=== PATIENT | female | born 1985 | race African-American/Black ===

== ENCOUNTER 2021-11-16 04:03 | Emergency (ER) | payer MEDICARE, SELFPAY ==
--- NOTE | ~2021-11-16 | XR_ITS ---
EXAMINATION: XR chest 1V portable DATE: 11/16/2021 04:39 INDICATION: Cough. Dizziness. TECHNIQUE: A single frontal view of the chest was obtained. COMPARISON: None. FINDINGS: The chest demonstrates clear lungs without pneumonia, pleural effusion, or pneumothorax. Th e heart size is normal. IMPRESSION: 1. No acute cardiopulmonary disease. Reviewed, dictated and finalized at location A. 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
[2021-11-16 04:01] VITALS: BP 123/81; PULSE 87; RESP 18; TEMP 36.8; O2SAT 100
--- NOTE | 2021-11-16 04:34 | ED.GENADULT ---
HPI - General Adult General Chief complaint: Unspecified Stated complaint: multiple c/o Time Seen by Provider: 11/16/21 04:08 History of Present Illness HPI narrative: Patient is a 36-year-old female presents the emergency department with chief complaint of dizziness. Patient reported she had multiple complaints including generalized body aches had some nausea reports that she has a sore throat with this as well. Patient reports she has aching in her legs reports that she has a generalized malaise feeling over her body for symptoms or not improved by anything and reports has not been vaccinated for Covid and reports has not previously had Covid. Related Data Home Medications Medication Instructions Recorded Confirmed No Home Medications 11/16/21 11/16/21 Allergies Allergy/AdvReac Type Severity Reaction Status Date / Time No Known Allergies Allergy Verified 11/16/21 04:08 Review of Systems Review of Systems: A 10 system review of systems was completed on the patient and is negative except for what is stated in the HPI. Nursing and ancillary documentation was reviewed. Exam Narrative: GENERAL: Well-appearing, well-nourished, and in no acute distress. HEAD: Normocephalic, atraumatic. EYES: PERRLA and EOMI. ENT: Nares clear, no rhinorrhea or epistaxis. Mucous membranes moist. NECK: Supple. CHEST: Clear to auscultation. No respiratory distress. HEART: Regular rate and rhythm. No murmur heard. Normal peripheral pulses. ABDOMEN: Soft, nontender, nondistended, normal active bowel sounds. EXTREMITIES: Normal range of motion. No edema. SKIN: Warm, dry, no rash. NEURO: No focal deficits. Alert and oriented x3. PSYCH: Normal mood and affect. Course Vital Signs Vital signs: Vital Signs Temperature 36.8 C 11/16/21 04:01 Pulse Rate 87 11/16/21 04:01 Respiratory Rate 18 11/16/21 04:01 Blood Pressure 123/81 11/16/21 04:01 Pulse Oximetry 100 11/16/21 04:01 Temperature 36.8 C 11/16/21 04:01 Pulse Rate 87 11/16/21 04:01 Respiratory Rate 18 11/16/21 04:01 Blood Pressure 123/81 11/16/21 04:01 Pulse Oximetry 100 11/16/21 04:01 Medical Decision Making Vital Signs Vital Signs: Vital Signs Temperature 36.8 C 11/16/21 04:01 Pulse Rate 87 11/16/21 04:01 Respiratory Rate 18 11/16/21 04:01 Blood Pressure 123/81 11/16/21 04:01 Pulse Oximetry 100 11/16/21 04:01 Temperature 36.8 C 11/16/21 04:01 Pulse Rate 87 11/16/21 04:01 Respiratory Rate 18 11/16/21 04:01 Blood Pressure 123/81 11/16/21 04:01 Pulse Oximetry 100 11/16/21 04:01 Lab Data Result diagrams: 11/16/21 04:32 11/16/21 04:32 Labs: Lab Results 11/16/21 11/16/21 11/16/21 Range/Units 04:32 04:32 04:32 WBC 9.3 (4.5-10.0) K/mm3 RBC 3.94 L (4.2-5.4) M/mm3 Hgb 10.9 L (12.0-15.0) g/dL Hct 34.8 L (37.0-47.0) % MCV 88.3 (80-100) fl MCH 27.7 (26-34) pg MCHC 31.3 L (32-36) g/dl RDW 15.3 H (11.5-14.5) % Plt Count 399 H (150-375) k/mm3 MPV 10.3 (7.4-10.4) fl Immature Gran % (Auto) 0.3 (0-0.5) % Neut % (Auto) 62.0 (45.5-73.1) % Lymph % (Auto) 30.2 (18.3-44.2) % Garland % (Auto) 5.5 (2.6-8.5) % Eos % (Auto) 1.7 (0-4.4) % Baso % (Auto) 0.3 (0.2-1.2) % Lymph # (Auto) 2.80 (0.9-3.2) K/mm3 Garland # (Auto) 0.5 (0.1-0.6) K/mm3 Eos # (Auto) 0.2 (0-0.3) K/mm3 Baso # (Auto) 0.0 (0.0-0.1) K/mm3 Abs Immat Gran (auto) 0.03 (0.00-0.031) K/mm3 Absolute Neuts (auto) 5.7 (1.3-6.7) K/mm3 Absolute Nucleated RBC 0.0 (0.0-0.012) K/mm3 Nucleated RBC % 0.0 (0.0-0.2) % Sodium 139 (137-145) mmol/L Potassium 4.2 (3.4-5.0) mmol/L Chloride 106 (98-107) mmol/L Carbon Dioxide 25 (22-30) mmol/L Anion Gap 8 (8-16) mmol/L BUN 14 (7-17) mg/dL Creatinine 1.00 (0.7-1.0) mg/dL Estim Creat Clear Calc Not Reportable Estimated GFR > 60 (59
[2021-11-16] MEDS: SODIUM CHLORIDE 0.9% IV 1,000 ML 999 ML IV CONT (04:42)
[2021-11-16] MEDS: diphenhydrAMINE HCl INJ 50 MG/ML VIAL IV PUSH (04:42)
[2021-11-16] MEDS: PROCHLORPERAZINE EDISYLATE 10 MG/2 ML VIAL IV PUSH (04:49)
[2021-11-16] MEDS: KETOROLAC 15 MG/ML VIAL (*BKC) IV PUSH (04:52)
[2021-11-16 04:58] LABS: Basophils Percent Auto 0.3 % (0.2-1.2); Eosinophils Absolute Auto 0.2 K/mm3 (0-0.3); Eosinophils Percent Auto 1.7 % (0-4.4); Hematocrit 34.8 % (37.0-47.0); Hemoglobin 10.9 g/dL (12.0-15.0); Immature Granulocyte Absolute 0.03 K/mm3 (0.00-0.031); Immature Granulocyte Percent A 0.3 % (0-0.5); Lymphocytes Percent Auto 30.2 % (18.3-44.2); Mean Corpuscular HGB Conc 31.3 g/dl (32-36); Mean Corpuscular Hemoglobin 27.7 pg (26-34); Mean Corpuscular Volume 88.3 fl (80-100); Mean Platelet Volume 10.3 fl (7.4-10.4); Monocytes Absolute Auto 0.5 K/mm3 (0.1-0.6); Monocytes Percent Auto 5.5 % (2.6-8.5); Neutrophils Absolute Auto 5.7 K/mm3 (1.3-6.7); Platelet Count Result 399 k/mm3 (150-375); Red Blood Count 3.94 M/mm3 (4.2-5.4); Red Cell Distribution Width 15.3 % (11.5-14.5); White Blood Count 9.3 K/mm3 (4.5-10.0)
[2021-11-16 05:02] LABS: Add Urine Microscopic? YES; Appearance Urine Cloudy (Clear); Bilirubin Urine Negative (Negative); Blood Urine 3+ (Negative); Color Urine Red (Yellow); Glucose Urine UA Negative (Negative); Ketones Urine Negative (Negative); Leukocyte Esterase Ur 2+ LEU/UL (Negative); Nitrate Urine Negative (Negative); Protein Urine 2+ mg/dL (Negative); RBC Urine >75 /hpf (0-2); Specific Grav Ur 1.023 (1.001-1.035); Squamous Epithelial Cell Urine Moderate /hpf (Few); Urobilinogen Urine Negative mg/dL (<2.0); WBC Urine >75 /hpf
[2021-11-16 05:11] LABS: Lactic Acid Reflex 1.4 mmol/L (0.7-2.1)
[2021-11-16 05:22] LABS: Alanine Aminotransferase 15 U/L (4-35); Albumin Level 3.9 g/dL (3.5-5.1); Alkaline Phosphatase 83 U/L (38-126); Anion Gap 8 mmol/L (8-16); Aspartate Amino Transferase 21 U/L (14-36); Bilirubin,Total 0.5 mg/dL (0.2-1.3); Blood Urea Nitrogen 14 mg/dL (7-17); Calcium 8.7 mg/dL (8.4-10.2); Carbon Dioxide 25 mmol/L (22-30); Chloride 106 mmol/L (98-107); Estimated Glomerular Filt Rate > 60; Glucose 108 mg/dL (65-110); Magnesium 1.8 mg/dL (1.6-2.3); Potassium 4.2 mmol/L (3.4-5.0); Sodium 139 mmol/L (137-145)
[2021-11-16 06:31] LABS: SARS-CoV-2 RNA PCR Negative
[2021-11-16 08:22] VITALS: BP 124/74; PULSE 71; RESP 16; O2SAT 100
== END 2021-11-16 08:20 | disposition home or self-care (01) ==
PROVIDERS: Emergency Provider Emergency Medicine
DX: N30.00 Acute cystitis without hematuria (principal); Z20.822 Contact with and (suspected) exposure to COVID-19
CPT/HCPCS: 36415; 71045; 80053; 81001; 81025; 83605; 83735; 85025; 87077; 87081; 87086; 87186; 87804; 87880; 96361; 96365; 96375; 99284; C9803; J0696; J0780; J1200; J1885; J7030; U0003; U0005

== ENCOUNTER 2023-01-15 11:37 | Emergency (ER) | payer MEDICARE, SELFPAY ==
--- NOTE | ~2023-01-15 | XR_ITS ---
XR ankle RT min 3V DATE: 01/15/2023 13:41 INDICATION: Right ankle pain TECHNIQUE: 4 views COMPARISON: None FINDINGS: No fracture or dislocation of the ankle or disruption of the ankle mortise. No periosteal r eaction or bone destruction. IMPRESSION: Negative Reviewed, dictated and finalized at location L. [employer] P[employer] EXAMINER IMPRESSION: Negative
--- NOTE | ~2023-01-15 | XR_ITS ---
XR ankle LT min 3V DATE: 01/15/2023 13:41 INDICATION: Persistent pain. Fall several months ago. TECHNIQUE: 4 views COMPARISON: None FINDINGS: No fracture or dislocation of the ankle or disruption of the ankle mortise. No periosteal r eaction or bone destruction. IMPRESSION: Negative Reviewed, dictated and finalized at location L. 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
[2023-01-15 11:41] VITALS: BP 140/82; PULSE 67; RESP 15; TEMP 36.8; O2SAT 96
--- NOTE | 2023-01-15 13:26 | ED.GENADULT ---
HPI - General Adult General Chief complaint: Unspecified Stated complaint: bilateral leg pain and swelling - fall in October Time Seen by Provider: 01/15/23 12:11 History of Present Illness HPI narrative: This is a 37-year-old female comes to the ED with multiple complaints. Her first complaint is bilateral ankle pain that has been going on for 4 months. She reports swelling of the ankles and occasional popping. She notes a fall that occurred in early October. No injury since. No other traumas. Denies any further location of pain. Her second complaint is dental pain ongoing for several weeks. She thinks she might have an infection. She denies any drooling or facial swelling or any other drainage. She has not seen a dentist. Denies fevers, chills, numbness, weakness, dyspnea. Related Data Allergies Allergy/AdvReac Type Severity Reaction Status Date / Time No Known Allergies Allergy Verified 01/15/23 12:10 Review of Systems Review of Systems: CONSTITUTIONAL: Denies fever, chills, or sweats. SKIN: Denies rash or itching. MUSCULOSKELETAL: Endorses ankle pain bilaterally and lower leg swelling bilaterally. Denies back pain, joint pain, or myalgia. NEUROLOGIC: Denies headache, numbness, dizziness, or weakness. PSYCHIATRIC: Denies anxiety or depression. Exam Narrative: GENERAL: Well-appearing, well-nourished, and in no acute distress. HEAD: Normocephalic, atraumatic. EYES: PERRLA and EOMI. ENT: Poor dentition overall. Mild swelling in the gums inferiorly on the left side. No erythema. No drainage. No obvious fluctuance or abscess. Uvula midline. No drooling. No trismus. The floor the mouth is intact. Halitosis is present. Moist mucous membranes present. No further lesions in the oropharynx. No tonsillar hypertrophy or exudate. EXTREMITIES: There is no swelling of the bilateral lower extremities. Negative Homans' sign. Normal range of motion. No edema. She has mild tenderness of the ankles bilaterally. There is no tenderness of either calf. SKIN: Warm, dry, no rash. No overlying skin changes in the lower extremities. NEURO: Alert and oriented x3. No focal deficits. Neurovascularly intact distally. PSYCH: Normal mood and affect. Course Vital Signs Vital signs: Vital Signs Temperature 98.2 F 01/15/23 11:41 Pulse Rate 67 01/15/23 11:41 Respiratory Rate 15 01/15/23 11:41 Blood Pressure 140/82 01/15/23 11:41 Pulse Oximetry 96 01/15/23 11:41 Oxygen Delivery Room Air 01/15/23 11:41 Temperature 98.2 F 01/15/23 11:41 Pulse Rate 67 01/15/23 11:41 Respiratory Rate 15 01/15/23 11:41 Blood Pressure 140/82 01/15/23 11:41 Pulse Oximetry 96 01/15/23 11:41 Oxygen Delivery Room Air 01/15/23 11:41 Medical Decision Making MDM Narrative Medical decision making narrative: This is a 37-year-old female comes in with bilateral ankle pain x4 months and dental pain times multiple weeks. Reports a fall back in October and has not reinjured her ankle since. Vital stable. Afebrile. Absolutely no concern for any DVTs at this point. Exam is very reassuring. X-rays of bilateral ankles show no acute osseous findings. ENT exam shows some mild swelling in her lower teeth. Halitosis present. We will give her amoxicillin prescription and strict instructions to follow-up with a dentist as soon as possible. also instructed to take Tylenol and ibuprofen for the ankle pain and swelling. Patient is understanding and agreeable with plan for discharge. Return precautions given for new or worsening symptoms. Supportive measures discussed. Vital Signs Vital Signs: Vital Signs Temperature 98.2 F 01/15/23 11:41 Pulse Rate 67 01/15/23 11:41 Respiratory Rate 15 01/15/23 11:41 Blood Pressure 140/82 01/15/23 11:41 Pulse Oximetry 96 01/15/23 11:41 Oxygen Delivery Room Air 01/15/23 11:41 Temperature 98.2 F 01/15/23 11:41 Pulse Rate 67 01/15/23 11:41 Respiratory Rate 1
[2023-01-15] MEDS: AMOXICILLIN 500 MG CAPSULE PO (14:06)
[2023-01-15] MEDS: IBUPROFEN 400 MG TABLET 800 MG PO (14:06)
[2023-01-15 15:00] VITALS: BP 133/68; PULSE 88; RESP 16; TEMP 36.1; O2SAT 100
== END 2023-01-15 15:00 | disposition home or self-care (01) ==
PROVIDERS: Emergency Provider Physician Assistant
DX: M25.572 Pain in left ankle and joints of left foot (principal); M25.571 Pain in right ankle and joints of right foot; G89.29 Other chronic pain; K04.7 Periapical abscess without sinus
CPT/HCPCS: 73610; 99284; A9270